=== PATIENT | female | born 1990 | race Caucasian/White ===

== ENCOUNTER 2019-02-04 00:23 | Observation (INO) | payer OTHER ==
[2019-02-04] MEDS ORDERED: IV RINGERS,LACTATED 1000ML 1,000 ML IV PRN (00:30)
[2019-02-04 00:54] LABS: BILIRUBIN,URINE NEGATIVE (NEG); CLARITY,URINE CLEAR; COLOR,URINE YELLOW; NITRITE,URINE NEGATIVE (NEG); PROTEIN,URINE NEGATIVE (NEG-TRACE)
[2019-02-04 00:58] LABS: BACTERIA,URINE FEW /HPF (0-FEW); RBC,URINE 0 /HPF (0-2); SQUAMOUS EPITHELIAL CELL,UR FEW /LPF
[2019-02-04 01:01] LABS: AMPHETAMINE/METHAMPHETAMINE NEG (NEG); BARBITURATES NEG (NEG); BENZODIAZEPINES NEG (NEG); CANNABINOIDS NEG (NEG); COCAINE NEG (NEG); METHADONE NEG (NEG); OPIATES NEG (NEG); PHENCYCLIDINE NEG (NEG)
== END 2019-02-04 01:34 | disposition home or self-care (01) ==
LOC: 3 SO LND 00:23
PROVIDERS: ADMIT Family Medicine; ATTEND Family Medicine
DX: O26.893 Other specified pregnancy related conditions, third trimester (principal); R10.13 Epigastric pain; R19.7 Diarrhea, unspecified; R11.0 Nausea; Z3A.28 28 weeks gestation of pregnancy
CPT/HCPCS: 80307; 81001; 87086; G0378; G0379